=== PATIENT | female | born 1990 | race Caucasian/White ===

== ENCOUNTER 2021-08-30 15:22 | Emergency (ER) | payer OTHER, SELFPAY | END 2021-08-30 17:40 | disposition home or self-care (01) | LOC: MADERS 15:22 | DX: S00.83XA Contusion of other part of head, initial encounter (principal); S00.03XA Contusion of scalp, initial encounter; S50.11XA Contusion of right forearm, initial encounter; V80.010A Animal-rider injured by fall from or being thrown from horse in noncollision accident, initial encounter | CPT/HCPCS: 70450; 72125 ==

== ENCOUNTER 2025-10-16 23:46 | Emergency (ER) | payer SELFPAY ==
[2025-10-17] MEDS ORDERED: Cephalexin 500 MG CAP ONE (00:30)
== END 2025-10-17 01:27 | disposition home or self-care (01) ==
LOC: MADERS 23:46
DX: T81.49XA Infection following a procedure, other surgical site, initial encounter (principal); S61.217D Laceration without foreign body of left little finger without damage to nail, subsequent encounter; F17.290 Nicotine dependence, other tobacco product, uncomplicated; W26.9XXD Contact with unspecified sharp object(s), subsequent encounter; Z23 Encounter for immunization
CPT/HCPCS: 90471; 90715